=== PATIENT | male | born 1980 | race Hispanic/Latino ===

== ENCOUNTER 2019-10-12 12:53 | Emergency (ER) | payer SELFPAY ==
[2019-10-12] MEDS ORDERED: Ibuprofen 200 MG TAB ONE (14:52)
--- NOTE | 2019-10-12 15:07 | RAD ---
3 VIEWS LEFT SHOULDER: Date: 10/12/2019 COMPARISON: None. HISTORY: Injury, trauma, pain. FINDINGS: No widening of the acromioclavicular or coracoclavicular interspace. No displaced fracture or evidenc e of dislocation. IMPRESSION: No acute fracture or evidence of dislocation. POS: [facility]
== END 2019-10-12 15:55 | disposition home or self-care (01) ==
LOC: ERS 12:53
DX: S40.012A Contusion of left shoulder, initial encounter (principal); Z87.891 Personal history of nicotine dependence; V43.52XA Car driver injured in collision with other type car in traffic accident, initial encounter